=== PATIENT | female | born 1970 ===

== ENCOUNTER 2019-07-16 11:23 | Emergency (ER) | payer OTHER ==
[~2019-07-16] VITALS: Ht 170.2 cm; Wt 154.2 kg
[2019-07-16] MEDS ORDERED: COZAAR25 MG (11:53)
[2019-07-16] MEDS ORDERED: SYNTHROID75 MCG PO (11:53)
[2019-07-16] MEDS ORDERED: LOSARTAN-HCTZ1 EAC1 PO (11:53)
[2019-07-16] MEDS ORDERED: METFORMIN HCL1000 M2 PO (11:56)
== END 2019-07-16 15:04 | disposition home or self-care (01) ==
LOC: ER 11:23
DX: S93.492A Sprain of other ligament of left ankle, initial encounter (principal); W01.198A Fall on same level from slipping, tripping and stumbling with subsequent striking against other object, initial encounter; Y93.89 Activity, other specified; Y92.89 Other specified places as the place of occurrence of the external cause; Y99.8 Other external cause status

== ENCOUNTER 2020-07-07 15:19 | Emergency (ER) | payer OTHER ==
[~2020-07-07] VITALS: Ht 170.2 cm; Wt 143.3 kg
[~2020-07-07 15:19] MED LIST: COZAAR25 MG; LOSARTAN-HCTZ1 EAC1 PO; METFORMIN HCL1000 M2 PO; SYNTHROID75 MCG PO
[2020-07-07] MEDS ORDERED: LABETALOL HCL100 MG PO (22:10)
[2020-07-07] MEDS ORDERED: SYNTHROID50 MCG PO (22:10)
== END 2020-07-07 22:27 ==
LOC: ER 15:19
DX: I16.0 Hypertensive urgency (principal); Z20.828 Contact with and (suspected) exposure to other viral communicable diseases